=== PATIENT | male | born 1930 | race Caucasian/White ===

== ENCOUNTER 2016-10-03 15:17 | Day surgery (SDC) | payer OTHER ==
--- NOTE | ~2016-10-03 | OP ---
Record Of Operation [facility] [address] [place]. [address] NAME: HEMA MONROE : [birth year] STATUS : [facility]#: [id number] AGE: 86 ADM/REG DATE : 10/03/16 MR#: [id number] REPORT SERV DATE: 10/03/16 DICTATED BY: OSMAR CRANE JR. DATE: 10/03/16 REPORT STATUS : Draft TRANSCRIBED BY: MODL DATE: 10/03/16 DATE OF PROCEDURE: 10/03/2016 SURGEON: Osmar Crane M.D. PREOPERATIVE DIAGNOSIS: Right ureteral stone. POSTOPERATIVE DIAGNOSIS: Right ureteral stone. PROCEDURE PERFORMED: Cystoscopy, right retrograde pyelogram, dilation of right ureteral orifice, right ureteroscopy, laser ablation of 5 mm distal ureteral stone and removal of fragments, double-J stent placement. COMPLICATIONS: None. CONSULTATIONS: None. ANESTHESIA: General with endotracheal tube. SPECIMENS: Right ureteral stone fragments. DRAINS: A 6 x 26 cm double-J stent with string. ESTIMATED BLOOD LOSS: None. INDICATION: Mr. Monroe is an 86-year-old gentleman who has had difficulties for over a week now with a 5 mm distal ureteral stone causing intermittent intractable pain. He comes today for ureteroscopic stone management. PROCEDURE IN DETAIL: After the patient was identified and proper informed consent was obtained, he was taken to the operating room and general anesthesia was performed without complication using an endotracheal tube. He was then prepped and draped in normal sterile fashion in lithotomy position. Cystoscopic examination of the urethra and bladder were performed and found to be normal. He did have some benign prostate hypertrophy with a 4.5 cm prostatic urethral length. The right ureteral orifice was identified and cannulated with a 5-Al[place]ian open-ended catheter. He had a filling defect in the distal ureter consistent with a stone on CT scan, 5 mm in size and dilated ureter and renal pelvis above that, no other stones or filling defects were noted. A guidewire was advanced through the open-ended catheter around the stone into the renal pelvis and dilated the distal ureter. After one failed attempt at placement of the ureteroscope without dilation, the ureter dilated nicely without difficulties and I then performed rigid ureteroscopy successfully into ureter, visualized the stone and fragmented it using a 400 micron Holmium laser fiber. The fragments were removed using a Nitinol basket. I then inspected the rest of the ureter and did not note any other stones. I deployed a 6 x 26 cm double-J stent with a nice curl in both the bladder and the kidney. The bladder was drained. The string was left in place for removal next Friday. I will see him back in my office in four to six weeks for stone Record Of Operation [facility] [address] [place]. [address] NAME: HEMA MONROE : [birth year] STATUS : [facility] PAT#: [id number] AGE: 86 ADM/REG DATE : 10/03/16 MR#: [id number] REPORT SERV DATE: 10/03/16 DICTATED BY: OSMAR CRANE JR. DATE: 10/03/16 REPORT STATUS : Draft TRANSCRIBED BY: PERI DATE: 10/03/16 analysis. WILFRIDO/PERI Osmar Crane Jr., M.D. / [id number] CC: Jabari Giraldo Jr., MD
[~2016-10-03 15:17] MED LIST: COZ50 PO; MULTIVITAMI1 PO; PRAVACHOL40 MG PO; TAZTIA X3 PO
[2016-10-03 15:55] LABS: BASOPHILS 0.2 %; BASOPHILS ABSOLUTE 0.02 10/3/uL (0.0-0.16); EOSINOPHILS 0.7 %; EOSINOPHILS ABSOLUTE 0.09 10/3/uL (0.0-0.53); HEMATOCRIT 43.5 % (40.0-51.0); HEMOGLOBIN 14.5 g/dL (13.6-17.8); IMMATURE GRANULOCYTES 0.5 %; IMMATURE GRANULOCYTES ABSOLUTE 0.06 10/3/uL (0.0-0.11); LYMPHOCYTES 3.9 %; LYMPHOCYTES ABSOLUTE 0.51 10/3/uL (0.67-4.30); MEAN CORPUS HGB CONC 33.3 g/dL (32.0-36.0); MEAN CORPUSCULAR HEMOGLOB 31.1 pg (26.0-34.0); MEAN CORPUSCULAR VOLUME 93.3 fL (80-100); MEAN PLATELET VOLUME 10.2 fL (9.2-13.0); MONOCYTES 7.7 %; NEUTROPHILS ABSOLUTE 11.32 10/3/uL (2.02-8.40); PLATELET COUNT 159 10/3/uL (150-400); RBC DISTRIBUTION WIDTH 13.5 % (12.0-16.0); RED CELL COUNT 4.66 10/6/uL (4.7-6.1)
[2016-10-03] MEDS ORDERED: FLOMAX4 PO (15:55)
[2016-10-03] MEDS ORDERED: ASAB PO (15:55)
[2016-10-03] MEDS ORDERED: VITC500 PO (15:56)
[2016-10-03 15:57] LABS: MANUAL DIFF NO %
[2016-10-03 16:07] LABS: BUN (BLOOD UREA NITROGEN) 29 MG/DL (6-23); CALCIUM, SERUM 8.8 MG/DL (8.5-10.4); CHLORIDE, SERUM 101 MMOL/L (96-112); CO2 (CARBON DIOXIDE) 27 MMOL/L (24-34); CREATININE 1.97 MG/DL (0.70-1.30); GFR AFRICAN AMERICAN 34 ML/MIN (>=60); GFR NON AFRICAN AMERICAN 29 ML/MIN (>=60); GLUCOSE, SERUM 101 MG/DL (60-99); POTASSIUM, SERUM 4.1 MMOL/L (3.5-5.3); SODIUM, SERUM 138 MMOL/L (135-148)
== END 2016-10-03 19:54 | disposition home or self-care (01) ==
LOC: SDC 15:17
PROVIDERS: Urology
PROC: 0T768DZ Dilation of Right Ureter with Intraluminal Device, Via Natural or Artificial Opening Endoscopic (ICD-10-PCS; 2016-10-03)
PROC: 0TF68ZZ Fragmentation in Right Ureter, Via Natural or Artificial Opening Endoscopic (ICD-10-PCS; principal; 2016-10-03 16:15)
DX: N20.1 Calculus of ureter (principal); I10 Essential (primary) hypertension; E78.00 Pure hypercholesterolemia, unspecified
CPT/HCPCS: 74420; 80048; 85025; 93005; C1758; C1894; C2617; J2405; J2710; J3010; Q9967